=== PATIENT | female | born 1955 | race Caucasian/White ===

== ENCOUNTER 2018-02-08 10:58 | Emergency (ER) | payer OTHER ==
[~2018-02-08] VITALS: Ht 160 cm; Wt 81.6 kg
[2018-02-08] MEDS ORDERED: DICLOFENAC SODI50 MG PO (13:42)
[2018-02-08] MEDS ORDERED: DIAZEPAM10 MG PO (13:42)
== END 2018-02-08 14:18 | disposition home or self-care (01) ==
LOC: ER 10:58
DX: M62.838 Other muscle spasm (principal)

== ENCOUNTER 2018-04-25 08:42 | Emergency (ER) | payer OTHER ==
[~2018-04-25] VITALS: Ht 160 cm; Wt 78.5 kg
[~2018-04-25 08:42] MED LIST: DIAZEPAM10 MG PO; DICLOFENAC SODI50 MG PO
[2018-04-25] MEDS ORDERED: NAPROXEN500 MG (08:56)
== END 2018-04-25 14:47 | disposition home or self-care (01) ==
LOC: ER 08:42
DX: M25.572 Pain in left ankle and joints of left foot (principal); M13.871 Other specified arthritis, right ankle and foot

== ENCOUNTER → 2018-09-03 | Emergency (ER) | payer OTHER ==
[~2018-09-03] VITALS: Ht 160 cm; Wt 79.4 kg
[~2018-09-03] MED LIST changes: +CATAFLAN; +KETO10TA2 PO; +NAPROXEN500 MG; +PARAFON; +PERCOCET 5-3251 EACH PO; +SKELAXIN800 MG PO
== END ==
LOC: ER 00:39
DX: M54.2 Cervicalgia (principal); M25.572 Pain in left ankle and joints of left foot

== ENCOUNTER 2019-07-14 11:49 | Emergency (ER) | payer OTHER ==
[~2019-07-14] VITALS: Ht 160 cm; Wt 83.9 kg
[2019-07-14] MEDS ORDERED: NABUMETONE500 MG (12:17)
== END 2019-07-14 22:24 | disposition home or self-care (01) ==
LOC: ER 11:49
DX: R00.2 Palpitations (principal)

== ENCOUNTER 2022-12-30 09:39 | Emergency (ER) | payer OTHER ==
[~2022-12-30] VITALS: Ht 160 cm; Wt 86.2 kg
[~2022-12-30 09:39] MED LIST changes: +NABUMETONE500 MG; +TOPROL XL50 M1 PO
[2022-12-30] MEDS ORDERED: TRAMADOL HCL E100 M1 (09:46)
== END 2022-12-30 13:36 | disposition home or self-care (01) ==
LOC: ER 09:39
DX: S99.822A Other specified injuries of left foot, initial encounter (principal); X50.1XXA Overexertion from prolonged static or awkward postures, initial encounter; Y93.9 Activity, unspecified; Y92.89 Other specified places as the place of occurrence of the external cause; Y99.9 Unspecified external cause status; M79.672 Pain in left foot; I10 Essential (primary) hypertension

== ENCOUNTER 2023-05-23 20:30 | Emergency (ER) | payer OTHER ==
[~2023-05-23] VITALS: Ht 157.5 cm; Wt 95.3 kg
[~2023-05-23 20:30] MED LIST changes: +TRAMADOL HCL E100 M1
[2023-05-23] MEDS ORDERED: TOPROL XL25 MG (21:12)
== END 2023-05-23 22:59 | disposition home or self-care (01) ==
LOC: ER 20:30
DX: M79.604 Pain in right leg (principal); Z91.040 Latex allergy status

== ENCOUNTER 2023-06-01 12:01 | Emergency (ER) | payer OTHER ==
[~2023-06-01] VITALS: Ht 157.5 cm; Wt 86.2 kg
[~2023-06-01 12:01] MED LIST changes: +TOPROL XL25 MG
[2023-06-01] MEDS ORDERED: TOPROL XL25 M1 (12:36)
== END 2023-06-01 15:23 | disposition home or self-care (01) ==
LOC: ER 12:01
DX: N61.1 Abscess of the breast and nipple (principal)

== ENCOUNTER 2024-07-19 13:24 | Emergency (ER) | payer OTHER ==
[~2024-07-19] VITALS: Ht 170.2 cm; Wt 90.7 kg
[~2024-07-19 13:24] MED LIST changes: +ATORVASTATIN CA20 MG; +COZAAR50 MG; +METFORMIN HCL500 M3; +TOPROL XL25 M1
[2024-07-19] MEDS ORDERED: JARDIANCE25 MG PO (14:30)
[2024-07-19] MEDS ORDERED: KETOROLAC TROMETHAMINE 30 MG VIAL IM STA (17:36)
== END 2024-07-19 17:53 | disposition home or self-care (01) ==
LOC: ER 13:26
DX: M76.60 Achilles tendinitis, unspecified leg (principal); Z91.040 Latex allergy status

== ENCOUNTER 2024-07-27 09:04 | Emergency (ER) | payer OTHER ==
[~2024-07-27] VITALS: Ht 160 cm; Wt 86.2 kg
[~2024-07-27 09:04] MED LIST changes: +JARDIANCE25 MG PO
[2024-07-27] MEDS ORDERED: TRAMADOL HCL 50 MG TABLET PO ONE (10:15)
== END 2024-07-27 12:43 | disposition home or self-care (01) ==
LOC: ER 09:06
DX: M25.579 Pain in unspecified ankle and joints of unspecified foot (principal); I10 Essential (primary) hypertension; E11.9 Type 2 diabetes mellitus without complications; Z91.040 Latex allergy status; E78.00 Pure hypercholesterolemia, unspecified; Z79.4 Long term (current) use of insulin; M77.32 Calcaneal spur, left foot

== ENCOUNTER 2024-11-19 09:22 | Outpatient (CLI) | payer OTHER | END 2024-11-19 09:25 | disposition home or self-care (01) | LOC: RAD 09:22 | PROVIDERS: ATTEND Surgery | DX: K80.20 Calculus of gallbladder without cholecystitis without obstruction (principal); J18.9 Pneumonia, unspecified organism ==

== ENCOUNTER 2025-01-18 12:59 | Emergency (ER) | payer OTHER ==
[~2025-01-18] VITALS: Ht 160 cm; Wt 83.9 kg
[2025-01-18] MEDS ORDERED: KETOROLAC TROMETHAMINE 60 MG VIAL IM STA (14:25)
[2025-01-18] MEDS ORDERED: KETOROLAC TROMETHAMINE 60 MG VIAL IM ONE (14:30)
== END 2025-01-18 18:25 | disposition home or self-care (01) ==
LOC: ER 13:00
DX: M76.62 Achilles tendinitis, left leg (principal); M85.872 Other specified disorders of bone density and structure, left ankle and foot; M77.32 Calcaneal spur, left foot; I10 Essential (primary) hypertension; E11.9 Type 2 diabetes mellitus without complications; Z79.84 Long term (current) use of oral hypoglycemic drugs; Z91.040 Latex allergy status
CPT/HCPCS: 73620; 96372; 99283; J1885